=== PATIENT | female | born 1990 | race Caucasian/White ===

== ENCOUNTER 2022-09-18 18:54 | Emergency (ER) | payer MEDICAID ==
[~2022-09-18] VITALS: Ht 162.6 cm; Wt 95.3 kg
[~2022-09-18 18:54] MED LIST: CLIN-142 PO; IBUP-1969 PO; VALTREX PO
[2022-09-18 19:33] VITALS: BP_SYST 131; PULSE 86; TEMP 98.4; O2SAT 99
[2022-09-18] MEDS ORDERED: DIPH25CA83 PO (20:05)
[2022-09-18] MEDS ORDERED: HYDC2.5% TP (20:05)
== END 2022-09-18 20:27 | disposition home or self-care (01) ==
LOC: SED 18:54
DX: L50.9 Urticaria, unspecified (principal); R21 Rash and other nonspecific skin eruption; H92.01 Otalgia, right ear; Z79.899 Other long term (current) drug therapy
CPT/HCPCS: 99282

== ENCOUNTER 2022-09-20 16:09 | Emergency (ER) | payer MEDICAID ==
[~2022-09-20] VITALS: Ht 162.6 cm; Wt 95.3 kg
[~2022-09-20 16:09] MED LIST changes: +DIPH25CA83 PO; +HYDC2.5% TP
[2022-09-20 16:15] VITALS: BP_SYST 141; PULSE 102; RESP 19; TEMP 98; O2SAT 98
[2022-09-20 16:30] VITALS: BP_SYST 141; PULSE 102; RESP 19; TEMP 98; O2SAT 98
[2022-09-20] MEDS ORDERED: CORTEARS RIGHT EAR (16:45)
[2022-09-20] MEDS ORDERED: DIPH25CA83 PO (16:45)
[2022-09-20] MEDS ORDERED: IBUP-1971 PO (16:45)
[2022-09-20] MEDS ORDERED: KETOROLAC TROMETHAMINE 60 MG/2 ML VIAL IM ONE (17:00)
== END 2022-09-20 16:55 | disposition home or self-care (01) ==
LOC: SED 16:09
DX: H60.91 Unspecified otitis externa, right ear (principal); H92.01 Otalgia, right ear; Z79.899 Other long term (current) drug therapy
CPT/HCPCS: 99283; 96372; J1885

== ENCOUNTER 2023-07-03 10:18 | Emergency (ER) | payer MEDICAID ==
[~2023-07-03] VITALS: Ht 165.1 cm; Wt 104.3 kg
[~2023-07-03 10:18] MED LIST changes: +CORTEARS RIGHT EAR; +IBUP-1971 PO
[2023-07-03 10:20] VITALS: BP_SYST 150; PULSE 89; RESP 18; TEMP 97.9; O2SAT 98
[2023-07-03] MEDS ORDERED: AMOX875T2 PO (12:51)
[2023-07-03] MEDS ORDERED: IBUP-1969 PO (12:51)
[2023-07-03 13:03] VITALS: BP_SYST 147; PULSE 85; RESP 18; TEMP 98; O2SAT 98
[2023-07-03] MEDS: KETOROLAC TROMETHAMINE 30 MG VIAL IM ONE (13:04)
== END 2023-07-03 13:03 | disposition home or self-care (01) ==
LOC: SED 10:18
DX: K04.7 Periapical abscess without sinus (principal); H92.02 Otalgia, left ear; Z79.899 Other long term (current) drug therapy
CPT/HCPCS: 99283; 96372; J1885